=== PATIENT | female | born 1960 | race American Indian/Alaskan Native ===

== ENCOUNTER 2019-09-18 06:59 | Day surgery (SDC) | payer BC ==
[2019-09-18] MEDS ORDERED: PROPOFOL 200 MG/20 ML VIAL IV ONE ×2 (07:27)
[2019-09-18] MEDS ORDERED: WATER FOR IRRIG STERILE 250 ML BOTTLE IR ONE (07:29)
[2019-09-18] MEDS ORDERED: WATER FOR IRRIG STERILE 1,000 ML BOTTLE ONE (07:29)
[2019-09-18] MEDS ORDERED: SODIUM CHLORIDE 0.9% 1000 ML 1,000 ML ONE (07:48)
[2019-09-18] MEDS ORDERED: LIDOCAINE MPF (2%) 20 MG/1 ML VIAL 5 ML ONE (08:00)
[2019-09-18] MEDS ORDERED: SODIUM CHLORIDE 0.9% 1000 ML 1,000 ML IV SCH (08:00)
--- NOTE | 2019-09-18 08:28 | Anesthesia Day of Surgery ---
Anesthesia Day of Surgery - Day of Surgery Patient Examined: Yes Patient H&P Reviewed: Yes Patient is NPO: Yes
--- NOTE | 2019-09-18 08:28 | Anesthesia Consultation ---
Anesthesia Consult and Med Hx Date of service: 09/18/19 - Airway Anesthetic Teeth Evaluation: Good ROM Head & Neck: Adequate Mental/Hyoid Distance: Adequate Mallampati Class: Class II Intubation Access Assessment: Probably Good - Pre-Operative Health Status ASA Pre-Surgery Classification: ASA2 Proposed Anesthetic Plan: MAC - Cardiovascular System Hx Hypertension: Yes - Central Nervous System Hx Back Pain: Yes (radioactive lumbar test) Hx Psychiatric Problems: No - Other Systems Hx Substance Use: Yes (prescription pain meds)
--- NOTE | 2019-09-18 09:09 | Procedure Note ---
Date of procedure: 09/18/19 Pre-op diagnosis: Colon Polyp Screening/ P/H/O Colon Polyps/ Diverticular Disease Post-op diagnosis: other (Solitary,Rectal Polyp (possibly Hyperplastic)/Moderate, Left Colon Diverticuli/R/O Ileitis/ R/O Microscopic Colitis/ Minor,Internal Hemorrhoid) Procedure: Colonoscopy with biopsy Anesthesia: RANDA Surgeon: CHACE SONI Estimated blood loss: minimal Pathology: list Specimen disposition: to lab Condition: stable Disposition: same day (Avoid aspirin and NSAID for 5 day; otherwise resume home medication. Encourage fiber intake and follow up in 1 to 2 weeks ([phone]).)
[2019-09-18 09:51] VITALS: BP 140/84
--- NOTE | 2019-09-18 12:06 | Operative Report ---
PROCEDURE: Colonoscopy with biopsy. INDICATIONS: This is a 58-year-old -[place] female with prior history of gastric bypass. She also has an underlying history of back pain. Last colonoscopy was done 7 years ago. She had some colon polyps removed at that time. Lately, she has also been having some diarrhea and abdominal discomfort. Colonoscopy was done as part of colon polyp screening and also to assess for the diarrhea. DESCRIPTION OF PROCEDURE: The procedure was done after getting informed consent with MAC anesthesia. Initial rectal exam was unremarkable. Instrument was passed through the rectum onto the cecum, which was identified with ileocecal valve and the appendiceal orifice. Visualization was fair. Terminal ileum was intubated, showed normal mucosa. Biopsy was done to rule out for possible ileitis. Cecum, ascending colon, transverse colon, descending colon and sigmoid showed normal mucosa other than for the presence of moderate diverticular disease involving the left colon. Random biopsies were done to rule out for possible microscopic colitis. There was minimal bleeding from the biopsy sites. The rectum showed minor internal hemorrhoid on the retroverted view. ASSESSMENT: Colon polyp screening, diarrhea, past history of colon polyps, solitary rectal polyp, possibly hyperplastic, moderate left colon diverticula, rule out ileitis, rule out microscopic colitis, minor internal hemorrhoid. There was minimal bleeding associated with the procedure and the biopsy. No complications associated with the procedure. The patient will be asked to take fiber supplements, avoid aspirin and aspirin-related products for the next few days. Further treatment adjustment will be according to the biopsy findings. The patient will be asked to follow up in the office in 1-2 weeks' time. The procedure was done in the GI lab with assistance of the GI lab team, which included Jolanta GASPAR and Rodrigo torres and with assistance of anesthesia. JOB# [id number] CHRISTINE/LELA
== END 2019-09-18 07:00 | disposition home or self-care (01) ==
LOC: GIO 06:59
DX: R19.7 Diarrhea, unspecified (principal); R14.0 Abdominal distension (gaseous); K62.1 Rectal polyp; K64.8 Other hemorrhoids; K63.89 Other specified diseases of intestine; I10 Essential (primary) hypertension; K21.9 Gastro-esophageal reflux disease without esophagitis; Z86.010 Personal history of colon polyps; Z80.0 Family history of malignant neoplasm of digestive organs; Z79.899 Other long term (current) drug therapy; Z98.890 Other specified postprocedural states
CPT/HCPCS: 45380; 88305; J2704; J7030

== ENCOUNTER 2021-02-18 09:30 | Day surgery (SDC) | payer BC ==
[~2021-02-18 09:30] MED LIST: SODIUM CHLORIDE 0.9% 1000 ML 1,000 ML IV SCH
--- NOTE | 2021-02-18 11:06 | Anesthesia Day of Surgery ---
Anesthesia Day of Surgery - Day of Surgery Patient Examined: Yes Patient H&P Reviewed: Yes Patient is NPO: Yes
--- NOTE | 2021-02-18 11:06 | Anesthesia Consultation ---
Anesthesia Consult and Med Hx Date of service: 02/18/21 - Airway Anesthetic Teeth Evaluation: Good ROM Head & Neck: Adequate Mental/Hyoid Distance: Adequate Mallampati Class: Class III Intubation Access Assessment: Possibly Difficult - Pre-Operative Health Status ASA Pre-Surgery Classification: ASA2 Proposed Anesthetic Plan: MAC - Pulmonary Hx Smoking: No SOB: No Hx Sleep Apnea: Yes (+ CPAP) - Cardiovascular System Hx Hypertension: Yes (took antihypertensives this morning) Hx Heart Attack/AMI: No Hx Percutaneous Transluminal Coronary Angioplasty (PTCA): No Hx Cardia Arrhythmia: No - Central Nervous System CVA: No - Endocrine Hx Renal Disease: No Hx Liver Disease: No Hx Insulin Dependent Diabetes: No Hx Non-Insulin Dependent Diabetes: No Hx Thyroid Disease: No
[2021-02-18] MEDS ORDERED: ONDANSETRON 4 MG/2 ML INJ ONE (11:25)
[2021-02-18] MEDS ORDERED: LIDOCAINE MPF (2%) 20 MG/1 ML VIAL 5 ML ONE (11:25)
[2021-02-18] MEDS ORDERED: propofoL 200 MG/20 ML VIAL IV ONE (11:26)
[2021-02-18] MEDS ORDERED: fentaNYL 100 MCG/2 ML INJ ONE (11:26)
--- NOTE | 2021-02-18 11:52 | Procedure Note ---
Date of procedure: 02/18/21 Pre-op diagnosis: Abdominal Pain and R/O Peptic Ulcer Disease Post-op diagnosis: other (EGD with Biopsy) Procedure: EGD with Biopsy Anesthesia: MAC Surgeon: CHACE SONI Estimated blood loss: minimal Pathology: list Specimen disposition: to lab Condition: stable Disposition: same day (Treat with PPI. Avoid aspirin and NSAID for 5 days; otherwise resume home medication and follow up in 1 to 2 weeks ([phone]).)
--- NOTE | 2021-02-18 13:36 | Post Anesthesia Evaluation ---
- Post Anesthesia Evaluation Patient Participated: Yes Airway Patent: Yes Stable Respiratory Function: Yes Nausea/Vomiting: No Temp > 96.8F: Yes Pain Manageable: Yes Adequeate Hydration: Yes Anesthesia Complications: No
--- NOTE | 2021-02-18 14:41 | Operative Report ---
DATE OF SURGERY: 02/18/2021 PROCEDURE: EGD with biopsy INDICATIONS: This is a 60-year-old -[place] female with a prior history of a gastric bypass. Lately, she has been having some upper abdominal pain and dyspeptic symptoms. EGD was done to make sure there was not any peptic ulcer disease at the anastomotic site. DESCRIPTION OF PROCEDURE: Procedure was done after getting informed consent with MAC anesthesia. The instrument was passed through the hypopharynx into the esophagus, which showed some [id number] erosive esophagitis. Biopsy was done from the distal esophagus. The stomach showed a small gastric remnant with inflammation near the anastomotic site suggestive of gastritis. Biopsy was done from that area and also from the solitary gastric polyp that was noted in the small gastric remnant. The afferent and efferent loops were intubated, showed normal mucosa. Biopsy was done to rule out for possible celiac disease with minimal bleeding. ASSESSMENT: Upper abdominal pain, dyspepsia. No peptic ulcer disease noted. Small gastric remnant, gastritis, gastric polyp, rule out celiac disease, mild to moderate erosive esophagitis. Plan is to have the patient avoid aspirin and aspirin-related products for the next few days, treat the patient with proton pump inhibitor and have the patient follow up in the office in 1-2 weeks' time. The patient also was noted to have some mildly elevated alkaline phosphatase, but liver enzymes were normal and the patient is to be checked with an ultrasound of the liver and gallbladder also because of the patient's age, the patient will be checked for hepatitis C. Procedure was done in the GI lab with assistance of the GI lab team, which included the GI nurse, Tesha, with collision repair technicianRodrigo, and with assistance of anesthesia. TID: [id number] RECEIPT: [id number] CHRISTINE/PIPPA/LAURA
[2021-02-18 16:22] VITALS: BP 113/62
== END 2021-02-18 09:31 | disposition home or self-care (01) ==
LOC: GIO 09:30
DX: R10.10 Upper abdominal pain, unspecified (principal); R10.13 Epigastric pain; K31.89 Other diseases of stomach and duodenum; K29.70 Gastritis, unspecified, without bleeding; K21.00 Gastro-esophageal reflux disease with esophagitis, without bleeding; I10 Essential (primary) hypertension; G47.30 Sleep apnea, unspecified; Z79.899 Other long term (current) drug therapy; Z98.890 Other specified postprocedural states
CPT/HCPCS: 43239; 88305; 88342; J2405; J2704; J3010; J7030

== ENCOUNTER 2021-02-21 07:07 | Outpatient (CLI) | payer BC ==
--- NOTE | 2021-02-21 08:58 | Ultrasound Report ---
. LIMITED RUQ ABDOMINAL ULTRASOUND INDICATION: ABDOMINAL PAIN/GB. COMPARISON: No relevant prior imaging study available. FINDINGS: Pancreas: Visualized portions show no significant abnormality. Abdominal Aorta: No significant abnormality. IVC: No significant abnormality. Liver: The liver measures 13.5 cm in length. No significant abnormality. Normal hepatopedal blood fl ow in the main portal vein. Gallbladder: No significant abnormality. Bile ducts: No significant abnormality. Common bile duct measures 3.0 mm. Right kidney: No significant abnormality visualized. Free fluid: None. Additional Findings: None. IMPRESSION: Normal exam. Signer Name: Reggie Lyn Jr, MD Signed: 02/21/2021 8:53 AM Workstation Name: [id number]
== END 2021-02-21 07:08 | disposition home or self-care (01) ==
LOC: US 07:07
DX: K81.9 Cholecystitis, unspecified (principal); R10.11 Right upper quadrant pain
CPT/HCPCS: 76705